=== PATIENT | female | born 1975 | race Caucasian/White ===

== ENCOUNTER → 2017-11-23 | Outpatient (CLI) | payer BC, OTHER ==
[~2017-11-23] MED LIST: A-CARO-2525000 UNIT PO; B-12 DOTS500 MCG PO; BIOTIN1 MG PO; CALCIUM 500 MG1 EACH PO; CLARITIN10 MG PO; DERMOPLAST SPRA56 ML TP; HYDROCORTISONE30 G9 TOP; IBUPROFEN 800800 M1 PO; JOLESSA1 EACH PO; LANSINOH 60 GM60 GM TOP; MULTIVITAMINS PO; PRENATAL PO; PROBIOTIC1 EAC1 PO; SINGULAIR 10 MG10 M1 PO; TUCKS MEDICATE1 EAC1 TP; ZYRTEC10 M2 PO
== END ==
LOC: RAD 09:34
DX: Z12.31 Encounter for screening mammogram for malignant neoplasm of breast (principal)

== ENCOUNTER → 2019-01-05 | Outpatient (CLI) | payer BC, OTHER | LOC: RAD 10:13 | DX: Z12.31 Encounter for screening mammogram for malignant neoplasm of breast (principal) ==

== ENCOUNTER → 2021-03-18 | Outpatient (CLI) | payer BC, OTHER | LOC: BC 13:16 | PROVIDERS: ATTEND Obstetrics & Gynecology | DX: Z12.31 Encounter for screening mammogram for malignant neoplasm of breast (principal); N64.89 Other specified disorders of breast ==